=== PATIENT | female | born 1955 | race American Indian/Alaskan Native ===

== ENCOUNTER 2016-09-12 23:58 | Emergency (ER) | payer OTHER ==
--- NOTE | ~2016-09-12 | EKG ---
PATIENT: RAMOS BEAUCHAMP UNIT #: [id number] Ventricular Rate: 73 BPM Atrial Rate: 73 BPM P-R Interval: 194 ms QRS Duration: 82 ms Q-T Interval: 388 ms QTC Calculation(Bezet): 427 ms P [place]: 73 degrees Calculated R [place]: 66 degrees Calculated T [place]: 67 degrees Diagnosis Line: Normal sinus rhythm Diagnosis Line: Normal ECG Diagnosis Line: No previous ECGs available Diagnosis Line: Confirmed by HERMINIO SPEARS MD ([id number]) on Diagnosis Line: 09/14/2016 10:56:43 PM INTERPRETING MD: DEON
--- NOTE | ~2016-09-12 | CR72 ---
[facility] A Service of [facility] RADIOLOGY TEXT RESULTS PATIENT: RAMOS BEAUCHAMP LOCATION: [facility] : 53 UNIT #: [id number] AGE: [address]: Bret Victoria MD SEX: F ORDER DR: [id number] [facility] [address] [place], [place] [address] [id number] E MR#: [id number] Acc #: [id number] NAME: RAMOS BEAUCHAMP : 1955 SEX: F STUDY DATE/TIME: 09/13/2016 1:40 UNIT: [facility] ROOM: STUDY DESCRIPTION: CR Chest Single View Portable Attending Physician: Bret Victoria M.D. Ordering Physician: Bret Victoria M.D. Primary Care Physician: Primary Care Physician No MEDICAL IMAGING REPORT This report is preliminary unless electronic signature is present EXAM Chest x-ray 09/13/2016. HISTORY 61-year-old female in the ED complaining of new onset lower chest pain today. TECHNIQUE AP portable upright chest x-ray. FINDINGS The lungs are expanded and clear. No visible pulmonary infiltrate or pleural effusion. Heart size and pulmonary vascularity are normal. IMPRESSION Negative chest. Dictated by... Madhav Victor M.D. THIS IS AN ELECTRONICALLY VERIFIED REPORT Madhav Victor M.D. at 09/13/2016 10:18 PM KHANH/jimy TD: 09/13/2016 02:57 JOB #: [id number] MEDICAL IMAGING REPORT Page 1 of 1 COPY
[2016-09-13 00:42] LABS: POC - CKMB <1.0 ng/mL (0.0-7.9); POC - TROPONIN <0.05 ng/mL (<=0.05)
[2016-09-13 00:51] LABS: BASOPHIL% 0.1 % (0-2.5); EOSINOPHIL% 0.4 % (0.0-7.0); HEMATOCRIT 39.4 % (35.0-45.0); HEMOGLOBIN 12.7 gm/dL (12.0-16.0); LYMPHOCYTE# 0.5 X10e3 (1.0-3.5); LYMPHOCYTE% 5.9 % (17.0-45.0); MEAN CELL VOLUME 95.3 FL (83-96); MEAN CORPUSCULAR HEMOGLOBIN 30.8 PG (28-34); MEAN CORPUSCULAR HGB CONC 32.3 g/dL (30-36); MEAN PLATELET VOLUME 9.4 FL (6.5-11.5); MONOCYTE# 0.6 X10e3 (0-1.0); MONOCYTE% 6.4 % (3.0-12.0); NEUTROPHIL# 7.7 X10e3 (1.5-7.1); NEUTROPHIL% 87.2 % (40-75); PLATELET COUNT 174 X10e3 (140-420); RED BLOOD COUNT 4.13 X10e (3.90-5.30); RED CELL DISTRIBUTION WIDTH 14.1 % (11.0-15.5); WHITE BLOOD COUNT 8.9 X10e3 (4.0-10.5)
[2016-09-13 00:53] LABS: DIFF IND NO
[2016-09-13 01:25] LABS: ALBUMIN SERUM 3.9 g/dL (3.5-5.0); BILIRUBIN, DIRECT 0.5 mg/dL (0.0-0.2); BILIRUBIN,INDIRECT 0.8 mg/dL (0.0-0.9); BILIRUBIN,TOTAL 1.3 mg/dL (0.2-2.0); BUN/CREATININE RATIO 24.28; CREATININE SERUM 0.7 mg/dL (0.6-1.4); GLOM FILT RATE Estimated 92.9 mL/min (>60); POTASSIUM 3.4 mmol/L (3.5-5.1); PROTEIN TOTAL SERUM 7.1 g/dL (6.0-8.3)
[2016-09-17 02:53] LABS: HA AB IGM (HEPPAN) Nonreactive (()); HB CORE AB IGM (HEPPAN) Nonreactive (Nonreactive); HB S AG (HEPPAN) Nonreactive (Nonreactive); HEP C AB (HEPPAN) Nonreactive (Nonreactive); HEP C AB SIGNAL TO CUTOFF 0.01 ratio (<1.00)
== END 2016-09-13 02:10 | disposition home or self-care (01) ==
LOC: CED 23:58
PROVIDERS: Emergency Medicine
DX: R10.13 Epigastric pain (principal); R94.5 Abnormal results of liver function studies; K21.9 Gastro-esophageal reflux disease without esophagitis; F17.200 Nicotine dependence, unspecified, uncomplicated
CPT/HCPCS: 36415; 71010; 80048; 80074; 80076; 82150; 82553; 83690; 84484; 85025; 93005; 99283